=== PATIENT | female | born 1985 | race Caucasian/White ===

== ENCOUNTER 2023-03-11 | Outpatient (REF) | payer OTHER, SELFPAY | END 2023-03-11 00:01 | LOC: HO.BBR | PROVIDERS: PCP Nurse Practitioner Family; Visit Provider Nurse Practitioner Family | DX: D75.1 Secondary polycythemia (principal) | CPT/HCPCS: 85018; 99195 ==

== ENCOUNTER 2023-12-27 14:55 | Outpatient (REF) | payer OTHER, SELFPAY | END 2023-12-27 14:56 | disposition home or self-care (01) | LOC: HO.BBR 14:55 | PROVIDERS: PCP Nurse Practitioner Family; Visit Provider Physician Assistant Medical | DX: D75.1 Secondary polycythemia (principal) | CPT/HCPCS: 85014; 85018; 99195 ==